=== PATIENT | female | born 1965 | race African-American/Black ===

== ENCOUNTER 2017-08-14 07:49 | Emergency (ER) | payer BC ==
[~2017-08-14] VITALS: Ht 165.1 cm; Wt 86.0 kg
[2017-08-14] MEDS ORDERED: EPINEPHrine HCL (1:1000) 1 MG/ML VIAL ONE (07:53)
[2017-08-14] MEDS ORDERED: methylPREDNISolone SOD SUCC 125 MG/2 ML VIAL ONE (07:54)
[2017-08-14] MEDS ORDERED: diphenhydrAMINE HCL 50 MG/ML VIAL ONE (07:54)
[2017-08-14] MEDS ORDERED: FAMOTIDINE 20 MG/2 ML VIAL IV PUSH ONE (08:00)
[2017-08-14] MEDS ORDERED: diphenhydrAMINE HCL 50 MG/ML VIAL IVP ONE (08:00)
[2017-08-14] MEDS ORDERED: SODIUM CHLORIDE 0.9% FLUSH 10 ML FLUSH IV FLUSH PRN (08:00)
[2017-08-14] MEDS ORDERED: methylPREDNISolone SOD SUCC 125 MG/2 ML VIAL IV PUSH ONE (08:00)
[2017-08-14] MEDS ORDERED: EPINEPHrine HCL (1:1000) 1 MG/ML VIAL IM ONE (08:00)
[2017-08-14] MEDS ORDERED: MEDR4PAK PO (08:01)
[2017-08-14] MEDS ORDERED: FAMO1TAB73 PO (08:01)
[2017-08-14] MEDS ORDERED: CLAR10CA3 PO (08:01)
--- NOTE | 2017-08-14 08:02 | PD ---
HPI Chief Complaint: Allergic/Adverse Reaction Time Seen by Provider: 07:55 Travel History International Travel<30 days: No Contact w/Intl Traveler<30days: No Traveled to known affect area: No History of Present Illness HPI Patient is unsure as to the source, but she noted some hives after eating a biscuit, and then her top lip started to swell. Patient denies any alleviating or aggravating factors. Patient denies any associated factors such as shortness of breath, chest pain, abdominal pain, flank pain, back pain, sore throat, cough, runny nose. Per patient she relocated to [place] today. Patient states allergy to penicillin she develops hives and swelling, and she develops restless leg syndrome to Reglan Past medical history significant for thyroid cancer with lymph node and brain metastasis. And also a history of Crohn's. [facility] Social History Tobacco Use: No Allergies-Medications (Allergen,Severity, Reaction): Coded Allergies: Penicillins (Verified Allergy, Unknown, 08/14/17) egg (Verified Allergy, Unknown, 08/14/17) metoclopramide (Verified Adverse Reaction, Unknown, 08/14/17) restless leg Reported Meds & Prescriptions Reported Meds & Active Scripts Active Claritin (Loratadine) 10 Mg Cap 10 Mg PO DAILY 10 Days Pepcid (Famotidine) 40 Mg Tab 40 Mg PO DAILY Medrol Dosepak (Methylprednisolone) 4 Mg Dspk 4 Mg PO DIRECTED Per Pharmacist direction Reported Levothyroxine (Levothyroxine Sodium) 100 Mcg Tab 100 Mcg PO DAILY Review of Systems General / Constitutional: No: Fever Eyes: No: Visual changes HENT: No: Headaches Cardiovascular: No: Chest Pain or Discomfort Respiratory: No: Shortness of Breath Gastrointestinal: No: Abdominal Pain Genitourinary: No: Dysuria Musculoskeletal: No: Pain Skin: Positive Hives Neurologic: No: Weakness Psychiatric: No: Depression Endocrine: No: Polydipsia Hematologic/Lymphatic: No: Easy Bruising Physical Exam Narrative GENERAL: SKIN: Warm and dry. Eyes are noted throughout particularly on patient's right thigh forearm trunk. Patient also has edema of the superior lateral aspect of lip HEAD: Atraumatic. Normocephalic. EYES: Pupils equal and round. No scleral icterus. No injection or drainage. ENT: No nasal bleeding or discharge. Mucous membranes pink and moist. No tongue or uvular edema NECK: Trachea midline. No JVD. No stridor CARDIOVASCULAR: Regular rate and rhythm. RESPIRATORY: No accessory muscle use. Clear to auscultation. Breath sounds equal bilaterally. No wheezing GASTROINTESTINAL: Abdomen soft, non-tender, nondistended. Hepatic and splenic margins not palpable. MUSCULOSKELETAL: Extremities without clubbing, cyanosis, or edema. No obvious deformities. NEUROLOGICAL: Awake and alert. No obvious cranial nerve deficits. Motor grossly within normal limits. Five out of 5 muscle strength in the arms and legs. Normal speech. PSYCHIATRIC: Appropriate mood and affect; insight and judgment normal. Data Data Last Documented VS Vital Signs Date Time Temp Pulse Resp B/P (MAP) Pulse Ox O2 Delivery O2 Flow Rate FiO2 08/14/17 10:00 76 18 120/73 (89) 98 08/14/17 08:09 Room Air 08/14/17 08:06 98.7 Orders Orders Epinephrine (1:1000) Inj (Adrenalin (1:1 (08/14/17 07:53) Methylprednisolone So Succ Inj (Solumedr (08/14/17 07:54) Diphenhydramine Inj (Benadryl Inj) (08/14/17 07:54) Ecg Monitoring (08/14/17 07:55) Iv Access Insert/Monitor (08/14/17 07:55) Oximetry (08/14/17 07:55) Diphenhydramine Inj (Benadryl Inj) (08/14/17 08:00) Methylprednisolone So Succ Inj (Solumedr (08/14/17 08:00) Famotidine Inj (Pepcid Inj) (08/14/17 08:00) Sodium Chloride 0.9% Flush (Ns Flush) (08/14/17 08:00) Epinephrine (1:1000) Inj (Adrenalin (1:1 (08/14/17 08:00) Ed Discharge Order (08/14/17 08:55) MDM Medical Decision Making Medical Screen Exam Complete: Yes Emergency Medical Condition: Yes Medical Record Reviewed: Yes Differential Diagnosis Allergic reaction versus angioedema versus hives Narrative Course Clinically the patient has findings consistent with mild angioedema. It is unknown what the allergen is, but according to patient she is already had allergy testing and states "I am allergic to everything" Diagnosis Primary Impression: Angioedema Patient Instructions: Angioedema (ED), General Instructions Scripts Loratadine (Claritin) 10 Mg Cap 10 MG PO DAILY for Allergy Management for 10 Days, #10 CAP 0 Refills Prov: Bryan Green MD 08/14/17 Famotidine (Pepcid) 40 Mg Tab 40 MG PO DAILY, #10 TAB 0 Refills Prov: Bryan Green MD 08/14/17 Methylprednisolone Dosepak (Medrol Dosepak) 4 Mg Dspk 4 MG PO DIRECTED, #1 DSPK 0 Refills Per Pharmacist direction Prov: Bryan Green MD 08/14/17 Disposition: 01 DISCHARGE HOME Condition: Stable Bryan Green MD August 14, 2017 08:02
[2017-08-14 08:06] VITALS: BP 160/89; PULSE 90; RESP 16; TEMP 98.7; O2SAT 98
[2017-08-14 08:09] VITALS: O2SAT 98
[2017-08-14] MEDS ORDERED: LEVO100T5 PO (08:23)
[2017-08-14 10:00] VITALS: BP 120/73
== END 2017-08-14 10:03 | disposition home or self-care (01) ==
LOC: PHED 07:49
DX: T78.3XXA Angioneurotic edema, initial encounter (principal); L50.9 Urticaria, unspecified; G25.81 Restless legs syndrome; K50.90 Crohn's disease, unspecified, without complications; Z79.899 Other long term (current) drug therapy; Z88.0 Allergy status to penicillin; Z88.8 Allergy status to other drugs, medicaments and biological substances
CPT/HCPCS: 96372; 96374; 96375; 99284; J0171; J1200; J2930